=== PATIENT | male | born 1970 | race Caucasian/White ===

== ENCOUNTER 2018-06-19 11:44 | Emergency (ER) | payer BC ==
[2018-06-19] MEDS ORDERED: Albuterol/Ipratropium 3.0-0.5 MG/3 ML Neb Soln NEB ONE (11:56)
[2018-06-19] MEDS ORDERED: Sodium Chloride 0.9% 500 ML IV ONE (11:56)
[2018-06-19] MEDS ORDERED: LORazepam 2 MG/ML SDV IVPUSH ONE (12:06)
[2018-06-19] MEDS ORDERED: Ondansetron 4 MG/2 ML SDV IVPUSH ONE (12:06)
--- NOTE | 2018-06-19 12:06 | EDM.PDOC ---
ED HPI GENERAL MEDICAL PROBLEM - General Chief Complaint: Chest Pain Stated Complaint: [facility] Time Seen by Provider: 06/19/18 11:54 Source of Information: Reports: Patient, RN Notes Reviewed - History of Present Illness INITIAL COMMENTS - FREE TEXT/NARRATIVE: 48-year-old male has been brought in by [facility] after having experienced onset of shortness of breath, difficulty breathing, anterior chest discomfort while at work this morning about 2 hours ago. EMS was called to the scene. Upon their arrival they state patient was very short of breath, appeared very uncomfortable. They were unable to get IV access so they did do an IO left upper arm. That they have given 5 mg morphine IV. Chest pain. He arrived having severe pain on left upper arm. He states he does have history of hypertension and also recently diagnosed pneumonia. He was just started on an antibiotic for that couple of days ago. He has been coughing a lot. He states the cough is actually somewhat better today. Chest Pain Score (Numeric/FACES): 7 - Related Data Allergies Allergy/AdvReac Type Severity Reaction Status Date / Time Penicillins Allergy Cannot Verified 06/19/18 11:54 Remember Home Meds: Home Meds Albuterol Sulfate [Proair Respiclick] 2 puff IH Q6HR PRN 06/19/18 [History] Azithromycin [Zithromax] 250 mg PO ASDIRECTED 06/19/18 [History] Benzonatate 100 mg PO ASDIRECTED 06/19/18 [History] Cyclobenzaprine [Flexeril] 10 mg PO TID PRN 06/19/18 [History] Folic Acid 1 mg PO DAILY 06/19/18 [History] Ibuprofen 600 mg PO Q6HR PRN 06/19/18 [History] Terazosin [Hytrin] 2 mg PO BID 06/19/18 [History] Triamterene/Hydrochlorothiazid [Triamterene-HCTZ 37.5-25 MG] 1 each PO DAILY 02/27 [History] predniSONE [Prednisone] 40 mg PO DAILY 06/19/18 [History] ED ROS GENERAL - Review of Systems Review Of Systems: See Below Constitutional: Denies: Fever, Chills HEENT: Denies: Sinus Problem, Throat Pain Respiratory: Reports: Shortness of Breath, Wheezing (No better now better), Cough, Sputum (For many days occasional) Cardiovascular: Reports: Chest Pain (Now better) GI/Abdominal: Denies: Abdominal Pain, Nausea, Vomiting Musculoskeletal: Denies: Shoulder Pain, Arm Pain, Back Pain Skin: Reports: No Symptoms Neurological: Reports: Dizziness, Numbness (Bilateral feet, now better) ED EXAM, GENERAL - Physical Exam Exam: See Below General Appearance: Alert, Mild Distress Eye Exam: Bilateral Eye: PERRL Throat/Mouth: Normal Inspection Head: Atraumatic. No: Facial Swelling Neck: Supple, Full Range of Motion, Other (No JVD) Respiratory/Chest: No Respiratory Distress, Lungs Clear, Normal Breath Sounds Cardiovascular: Tachycardia GI/Abdominal: Soft, Non-Tender Extremities: Normal Inspection, Normal Range of Motion. No: Pedal Edema, Leg Pain, Increased Warmth, Redness Neurological: Alert, Oriented, No Motor/Sensory Deficits Skin Exam: Warm, Dry, Normal Color EKG INTERPRETATION EKG Date: 06/19/18 Rate (Beats/Min): 123 [place]: Normal P-Wave: Present QRS: Normal ST-T: Normal Course - Vital Signs Last Recorded V/S: Last Vital Signs Temp 99 F 06/19/18 11:55 Pulse 132 H 06/19/18 11:55 Resp 24 H 06/19/18 11:55 BP 190/120 H 06/19/18 11:55 Pulse Ox 94 L 06/19/18 12:10 - Orders/Labs/Meds Orders: Active Orders 24 hr Category Date Time Status EKG 12 Lead [EKG Documentation Completion] [RC] STAT Care 06/19/18 11:56 Active RT Aerosol Therapy [RC] ASDIRECTED Care 06/19/18 11:57 Active Labs: Laboratory Tests 06/19/18 06/19/18 06/19/18 Range/Units 11:55 11:55 14:40 WBC 6.85 (4.23-9.07) K/mm3 RBC 4.64 (4.63-6.08) M/mm3 Hgb 15.4 (13.7-17.5) gm/L Hct 43.7 (40.1-51.0) % MCV 94.2 H (79.0-92.2) fl MCH 33.2 H (25.7-32.2) pg MCHC 35.2 (32.2-35.5) g/dl RDW Std Deviation 43.6 (35.1-43.9) fL Plt Count 238 (163-337) K/mm3 MPV 9.2 L (9.4-12.3) fl Neut % (Auto) 85.9 H (34.0-67.9) % Lymph % (Auto) 8.6 L (21.8-53.1) % [place] % (Auto) 4.5 L (5.3-12.2) % Eos % (Auto) 0 L (0.8-7.0) Baso % (Auto) 0.1 (0.1-1.2) % Neut # (Auto) 5.88 H (1.78-5.38) K/mm3 Lymph # (Auto) 0.59 L (1.32-3.57) K/mm3 [place] # (Auto) 0.31 (0.30-0.82) K/mm3 Eos # (Auto) 0.00 L (0.04-0.54) K/mm3 Baso # (Auto) 0.01 (0.01-0.08) K/mm3 Manual Slide Review Abnormal smear Sodium 141 (136-145) mEq/L Potassium 4.3 (3.5-5.1) mEq/L Chloride 105 (98-107) mEq/L Carbon Dioxide 20 L (21-32) mEq/L Anion Gap 20.3 H (5-15) BUN 29 H (7-18) mg/dL Creatinine 1.6 H (0.7-1.3) mg/dL Est Cr Clr Drug Dosing 57.03 mL/min Estimated GFR (MDRD) 46 (>60) mL/min BUN/Creatinine Ratio 18.1 H (14-18) Glucose 137 H (74-106) mg/dL Calcium 9.1 (8.5-10.1) mg/dL Total Bilirubin 0.2 (0.2-1.0) mg/dL AST 28 (15-37) U/L ALT 54 (16-63) U/L Alkaline Phosphatase 77 (46-116) U/L Troponin I < 0.017 < 0.017 (0.00-0.056) ng/mL Total Protein 8.4 H (6.4-8.2) g/dl Albumin 4.1 (3.4-5.0) g/dl Globulin 4.3 gm/dL Albumin/Globulin Ratio 1.0 (1-2) Meds: Medications Discontinued Medications Generic Name Dose Route Start Last Admin Trade Name Kory PRN Reason Stop Dose Admin Albuterol/Ipratropium 3 ml 06/19/18 11:56 06/19/18 12:10 Duoneb 3.0-0.5 Mg/3 Ml NEB 06/19/18 11:57 3 ml ONETIME ONE Administration Sodium Chloride 500 mls @ 999 mls/hr 06/19/18 11:56 06/19/18 12:03 Normal Saline IV 06/19/18 12:26 999 mls/hr .BOLUS ONE Administration Lorazepam 1 mg 06/19/18 12:06 06/19/18 12:15 Ativan IVPUSH 06/19/18 12:07 1 mg ONETIME ONE Administration Ondansetron HCl 4 mg 06/19/18 12:06 06/19/18 12:17 Zofran IVPUSH 06/19/18 12:07 4 mg ONETIME ONE Administration - Re-Assessments/Exams Free Text/Narrative Re-Assessment/Exam: 06/19/18 13:12. Chest x-ray does not show acute infiltrate, white blood count normal other labs all relatively normal, palate and did come back negative. He now is resting quite comfortably, pain-free. He did calm down considerably after Ativan 1 mg IV was given. He did have morphine 5 mg IO in route as well. It appears that he developed a coughing, possible wheezing spell and then suffered panic attack. Patient states he does suffer from high anxiety and agrees that it is very possible. We'll plan to do a second 3 hour troponin prior to discharge. 06/19/18 16:14. Repeat troponin also normal. Patient has been resting comfortably. He has been eating and drinking. Sinus rhythm, rate is come down into the 90s although at times still just above 100. That is much improved from 120-130 on arrival. Discharge instructions as documented Departure - Departure Time of Disposition: 16:07 Disposition: Home, Self-Care 01 Condition: Fair Clinical Impression: Atypical chest pain, Bronchitis, Dehydration Instructions: Dehydration, Adult, [id number], Acute Bronchitis, Adult, Easy- to-Read, Nonspecific Chest Pain, [id number] Referrals: Laly Mao PA-C [Primary Care Provider] - Forms: ED Department Discharge, ED Return to Work/School Form Additional Instructions: Try hard to stop smoking, drink plenty of water, fluids to maintain hydration, continue current medication as prescribed. Follow-up with cardiac stress test next week as planned. Follow-up clinic for results, return to ED as needed if symptoms worsening in any way. - My Orders Last 24 Hours: My Active Orders 06/19/18 11:56 EKG 12 Lead [EKG Documentation Completion] [RC] STAT 06/19/18 11:57 RT Aerosol Therapy [RC] ASDIRECTED - Assessment/Plan Last 24 Hours: My Active Orders 06/19/18 11:56 EKG 12 Lead [EKG Documentation Completion] [RC] STAT 06/19/18 11:57 RT Aerosol Therapy [RC] ASDIRECTED
--- NOTE | 2018-06-19 13:09 | CR ---
Chest: Portable view of the chest was obtained. Comparison: No prior chest x-ray. Heart size and mediastinum are normal. Nodule is noted within the right upper lung measuring about 6.6 mm which appears rather dense and is felt compatible with granuloma. Lungs otherwise are clear with no acute parenchymal change. Bony structures are grossly intact. Impression: 1. Incidental finding. Nothing acute is seen on portable chest x-ray. Diagnostic code #2
== END 2018-06-19 16:35 | disposition home or self-care (01) ==
LOC: JD.ED 11:44
DX: J40 Bronchitis, not specified as acute or chronic (principal); E86.0 Dehydration; Z88.0 Allergy status to penicillin; Z79.899 Other long term (current) drug therapy
CPT/HCPCS: 36415; 71045; 80053; 84484; 85025; 87804; 93005; 94640; 96361; 96374; 96375; 99285; J2060; J2405; J7040; J7620-GY